=== PATIENT | male | born 1985 | race Caucasian/White ===

== ENCOUNTER 2017-01-31 19:51 | Emergency (ER) | payer MEDICARE, OTHER | END 2017-01-31 21:47 | disposition home or self-care (01) | LOC: ER 19:51 | DX: N50.9 Disorder of male genital organs, unspecified (principal); N50.812 Left testicular pain; Z88.0 Allergy status to penicillin; Z88.1 Allergy status to other antibiotic agents; Z79.899 Other long term (current) drug therapy; Z79.1 Long term (current) use of non-steroidal anti-inflammatories (NSAID) | CPT/HCPCS: 99283 ==